=== PATIENT | male | born 1995 | race African-American/Black ===

== ENCOUNTER → 2017-05-11 | Day surgery (SDC) | payer BC ==
[~2017-05-11] MED LIST: ACETAMINOPHEN 1000 MG/100 ML IV ONE; AMOXICILLIN250 MG PO; BACITRACIN 50,000 UNIT VIAL ONE; BUPIVACAINE 0.5%/EPI 30 ML SDV INJ ONE; BUPIVACAINE HCL 0.5% INJ 30 ML VIAL INJ ONE; CEFAZOLIN SOD 2 GM/D5W 50ML 50 ML IV ONE; DEXAMETHASONE SOD PHOS INJ 4 MG/ML VIAL ONE; FENTANYL CITRATE/PF 100MCG/2 ML INJ ONE; HYDROCORTISONE28 G3; KETOROLAC TROMETHAMINE 30 MG/ML VIAL ONE; LIDOCAINE HCL 2% LOCAL INJ 5 ML SDV VIAL INJ ONE; MIDAZOLAM HCL 2 MG/2 ML VIAL ONE; ONDANSETRON HCL INJ 2 MG/ML VIAL ONE; PROPOFOL IV EMULSION 10 MG/ML 20 ML VIAL ONE; SEVOFLURANE INHAL SOLN 250 ML PEN BTL ONE
--- NOTE | 2017-05-11 15:09 | Diagnostic Imaging Report ---
PROCEDURE:X-RAY LEFT FOREARM, TWO VIEWS COMPARISON:None. INDICATIONS:POST OP FINDINGS: New postoperative changes of internal plate and screw fixation of the ulnar fracture. Fracture line remains visible. Diffuse soft tissue swelling, overlying skin riley, and cast material. Distal K wire fixating the distal ulna and radius near the wrist. CONCLUSION: New plate and screw fixation of the ulnar fracture.. Dictated by: Chandler Senior M.D. on 05/11/2017 at 15:10 Electronically approved by: Chandler Senior M.D. on 05/11/2017 at 15:10
--- NOTE | 2017-05-11 17:06 | Operative Report ---
DATE OF PROCEDURE: May 11, 2017 PREOPERATIVE DIAGNOSES 1. Left displaced ulnar fracture. 2. Left distal radioulnar joint separation. PROCEDURE PERFORMED: Patient underwent 1. An open reduction and internal fixation of the left ulnar fracture. 2. A closed reduction and percutaneous pinning of the left distal radioulnar joint. ASSIST: There was no assist. ANESTHESIA: General endotracheal intubation anesthesia. IV FLUIDS: Per the anesthesia record. DETAILS OF PROCEDURE: Mr. Watson was taken to operating room and placed in supine position on the operating table. Following induction of general anesthesia, as well as endotracheal intubation, the patient's left upper extremity was examined under anesthesia. It was found to have bruising and swelling involving the left forearm. Fluoroscopic evaluation of the forearm demonstrated a displaced proximal ulnar fracture. There was also hypermobility demonstrated at the distal radioulnar joint. The patient's upper extremity was prepped and draped in standard surgical fashion. The case was begun by approaching the ulna. An incision was created directly over the subcutaneous floor of the ulna. This incision was carried through skin only. Blunt dissection used to deepen incision to the level of the ulna and then a [place] was used to elevate the soft tissues from the ulna, exposing the patient's ulnar fracture. The fracture site was cleaned and reduced and held in place with fracture reduction clamps. A plate was chosen and affixed to the ulna, using combinations of cortical screws. There was compression placed across patient's fracture site, using the plate, and an interfragmentary screw was also positioned through the plate, compressing across the patient's fracture site. Once this fracture was stabilized, fluoroscopy confirmed appropriate reduction of the injury. The wound was copiously irrigated and closed in a multilayer fashion. Attention was then turned to the distal radioulnar joint. The forearm was held in supination and the ulna was reduced. A 0.062 K-wire was inserted from lateral to medial, capturing the ulna just proximal to the DRUJ and transfixing the ulna in line with the radius. The position of that pin as well as reduction of the distal radial ulnar joint, was evaluated using fluoroscopy and found to be appropriate. The pin site and incision site for the ORIF of the ulna was dressed sterilely. The patient was then placed in a supinated sugar-tong splint with an additional posterior splint immobilizing the elbow. The patient was then awakened and taken to the post-anesthesia care in stable condition. Job#: [id number]
== END | disposition home or self-care (01) ==
LOC: OR 10:06
PROVIDERS: ATTEND Specialist
DX: S52.232A Displaced oblique fracture of shaft of left ulna, initial encounter for closed fracture (principal); S63.012A Subluxation of distal radioulnar joint of left wrist, initial encounter; X58.XXXA Exposure to other specified factors, initial encounter
CPT/HCPCS: 25545; 25671; 73090; C1713 ×4; C1769; J1100; J1885; J2001; J2250; J2405; 76001

== ENCOUNTER 2017-07-13 10:00 | Outpatient (RCR) | payer BC ==
[~2017-07-13 10:00] MED LIST changes: -ACETAMINOPHEN 1000 MG/100 ML IV ONE; -BACITRACIN 50,000 UNIT VIAL ONE; -BUPIVACAINE 0.5%/EPI 30 ML SDV INJ ONE; -BUPIVACAINE HCL 0.5% INJ 30 ML VIAL INJ ONE; -CEFAZOLIN SOD 2 GM/D5W 50ML 50 ML IV ONE; -DEXAMETHASONE SOD PHOS INJ 4 MG/ML VIAL ONE; -FENTANYL CITRATE/PF 100MCG/2 ML INJ ONE; -KETOROLAC TROMETHAMINE 30 MG/ML VIAL ONE; -LIDOCAINE HCL 2% LOCAL INJ 5 ML SDV VIAL INJ ONE; -MIDAZOLAM HCL 2 MG/2 ML VIAL ONE; -ONDANSETRON HCL INJ 2 MG/ML VIAL ONE; -PROPOFOL IV EMULSION 10 MG/ML 20 ML VIAL ONE; -SEVOFLURANE INHAL SOLN 250 ML PEN BTL ONE
== END 2017-07-21 ==
LOC: OT 10:00
PROVIDERS: ATTEND Specialist
DX: S52.92XD Unspecified fracture of left forearm, subsequent encounter for closed fracture with routine healing (principal); M25.632 Stiffness of left wrist, not elsewhere classified; R53.1 Weakness